=== PATIENT | female | born 1975 | race Caucasian/White ===

== ENCOUNTER 2022-02-27 11:56 | Emergency (ER) | payer MEDICAID ==
[~2022-02-27] VITALS: Ht 152.4 cm; Wt 95.3 kg
[2022-02-27 12:00] VITALS: BP_SYST 132
[2022-02-27] MEDS ORDERED: CLIN-22 PO (13:06)
[2022-02-27] MEDS ORDERED: CORTEARS EACH EAR (13:06)
[2022-02-27] MEDS ORDERED: IBUP-1969 PO (13:06)
[2022-02-27 13:38] VITALS: BP_SYST 132
== END 2022-02-27 13:38 | disposition home or self-care (01) ==
LOC: SED 11:56
DX: H60.91 Unspecified otitis externa, right ear (principal)
CPT/HCPCS: 99283

== ENCOUNTER 2022-03-30 21:54 | Emergency (ER) | payer MEDICAID ==
[~2022-03-30] VITALS: Ht 152.4 cm; Wt 90.7 kg
[~2022-03-30 21:54] MED LIST: CLIN-22 PO; CORTEARS EACH EAR; IBUP-1969 PO
[2022-03-30 22:03] VITALS: BP_SYST 162
--- NOTE | 2022-03-30 22:54 | NUR ---
Pt brought by self, A&Ox4, pt presents to ER with anxiety, insomnia and episodes of headache, pt denies N/V,, BS 130 at this time, skin pink and warm, cap refill <3.
--- NOTE | 2022-03-30 23:05 | NUR ---
Report given to Malena CHRISTIANSEN
--- NOTE | 2022-03-30 23:23 | NUR ---
evaluating patient at this time
[2022-03-30] MEDS ORDERED: LORazepam 2 MG/ML VIAL IM ONE (23:30)
[2022-03-30 23:50] VITALS: BP_SYST 133
--- NOTE | 2022-03-30 23:50 | NUR ---
Patient given written and verbal discharge instructions given by Dr Rosenbaum and verbalizes understanding. ER MD discussed with patient the results and treatment provided. Patient in stable condition. ID arm band removed by Dr Rosenbaum. No Rx given. Patient educated on pain management and to follow up with PMD. Pain Scale 0/10. Opportunity for questions provided and answered by Dr Rosenbaum.
== END 2022-03-30 23:50 | disposition home or self-care (01) ==
LOC: SED 21:54
DX: F41.9 Anxiety disorder, unspecified (principal); F31.9 Bipolar disorder, unspecified; I10 Essential (primary) hypertension; Z79.899 Other long term (current) drug therapy
CPT/HCPCS: 96372; 99283; J2060

== ENCOUNTER 2022-08-23 13:25 | Emergency (ER) | payer MEDICAID ==
[~2022-08-23] VITALS: Ht 152.4 cm; Wt 90.7 kg
[2022-08-23 13:49] VITALS: BP_SYST 139
--- NOTE | 2022-08-23 16:00 | NUR ---
Pt brought by self, A&Ox4 , pt presents to ER with cough, fever and congestion, skin pink and warm, cap refill <3, VSS, will cont to monitor.
--- NOTE | 2022-08-23 19:50 | NUR ---
CALL PT NAME IN THE WR.NO ANSWER.
--- NOTE | 2022-08-23 19:55 | NUR ---
CALL PT NAME IN THE WR.NO ANSWER.
--- NOTE | 2022-08-23 20:00 | NUR ---
CALL PT NAME IN THE WR.NO ANSWER. Patient left without being seen.
== END 2022-08-23 20:00 | disposition left against medical advice (07) ==
LOC: SED 13:25
DX: R05.9 Cough, unspecified (principal); R50.9 Fever, unspecified; R09.81 Nasal congestion; Z20.822 Contact with and (suspected) exposure to COVID-19; Z53.21 Procedure and treatment not carried out due to patient leaving prior to being seen by health care provider
CPT/HCPCS: 36415

== ENCOUNTER 2023-08-25 13:20 | Emergency (ER) | payer OTHER, MEDICAID ==
[~2023-08-25] VITALS: Ht 157.5 cm; Wt 86.2 kg
[2023-08-25 13:33] VITALS: BP_SYST 120; PULSE 82; RESP 16; TEMP 97.1; O2SAT 98
[2023-08-25] MEDS ORDERED: TETRACAINE HCL/PF 0.5% OPHTHALMIC DROPS 4 ML OP ONE (14:30)
[2023-08-25] MEDS ORDERED: FLUORESCEIN SODIUM 1 MG OPHTHALMIC STRIP OP ONE (14:30)
[2023-08-25 15:45] LABS: CREATININE 0.66 mg/dL (0.55-1.30); POTASSIUM 3.4 mmol/L (3.5-5.1)
[2023-08-25] MEDS ORDERED: iohexoL 350 mgI/mL, 100 ML INFUS..BTL IV ONE (16:22)
[2023-08-25 18:06] VITALS: BP_SYST 119; PULSE 80; RESP 16; TEMP 97.8; O2SAT 98
[2023-08-25] MEDS ORDERED: OFLO5DRO6 EACH EYE (18:09)
[2023-08-25 18:11] LABS: FREE T4 (FREE THYROXINE) 0.9 ng/dL (0.6-1.6); THYROID STIMULATING HORMONE 1.23 uIu/mL (0.34-4.82)
== END 2023-08-25 18:06 | disposition home or self-care (01) ==
LOC: SED 13:20
DX: H02.401 Unspecified ptosis of right eyelid (principal); I10 Essential (primary) hypertension; F31.9 Bipolar disorder, unspecified; Z79.899 Other long term (current) drug therapy
CPT/HCPCS: 99285; 70480; 80048; 84439; 84443; 36415; 70496; 76376; Q9967